=== PATIENT | male | born 1995 | race African-American/Black ===

== ENCOUNTER 2021-04-20 22:52 | Emergency (ER) | payer MEDICAID ==
[~2021-04-20] VITALS: Ht 180.3 cm; Wt 86.2 kg
[2021-04-20 23:02] VITALS: BP 129/87
== END 2021-04-21 00:15 | disposition left against medical advice (07) ==
LOC: ER 23:03
DX: H57.89 Other specified disorders of eye and adnexa (principal); Z53.21 Procedure and treatment not carried out due to patient leaving prior to being seen by health care provider